=== PATIENT | female | born 1970 | race Asian ===

== ENCOUNTER 2017-03-08 02:27 | Emergency (ER) | payer SELFPAY ==
[2017-03-08] MEDS ORDERED: Tetracaine 0.5% OPTH.SOL 4 ML* 1 DROP BTL ONE (03:16)
[2017-03-08] MEDS ORDERED: Fluorescein Sodium TOPICAL* 1 MG TEST OPHTHALMIC ONE (03:17)
[2017-03-08] MEDS ORDERED: Tobramycin 0.3% OPHTH.SOL* 5 ML BOT (regular eye drops) LEFT EYE ONE (03:36)
--- NOTE | 2017-03-08 03:47 | ED ---
Hima Napoles Nikita, scribed for Evens Richardson MD on 03/08/17 at 0333 . Throat Pain/Nasal Congestion - HPI Summary HPI Summary: This patient is a 46 year old F presenting to ED with a chief complaint of L eye pain since 2300. Pt reports she was on her computer during onset of pain in the L eye. The CC is described as moving towards nose and in the top of the eye. The patient rates the pain 8/10 in severity. Symptoms aggravated by nothing. Symptoms alleviated by nothing (washing out eye and eye drops did not help). Patient reports decreased sleep. Patient denies blurred vision. Pt does not have contacts or glasses (has 20/20 vision). - History of Current Complaint Chief Complaint: EDEyeProblem Time Seen by Provider: 03/08/17 03:11 Hx Obtained From: Patient Onset/Duration: Sudden Onset, Lasting Hours, Still Present Severity: Moderate - Allergies/Home Medications Allergies/Adverse Reactions: Allergies Allergy/AdvReac Type Severity Reaction Status Date / Time No Known Allergies Allergy Verified 09/11/16 20:06 PMH/Surg Hx/FS Hx/Imm Hx GI History: Reports: Other GI Disorders - Polyp at cervical os, enlarged uterus History: Reports: Other Problems/Disorders - Polyp at cervical os, enlarged uterus Sensory History: Denies: Hx Contacts or Glasses Opthamlomology History: Denies: Hx Contacts or Glasses - Surgical History Surgery Procedure, Year, and Place: , fallopian tube surgery Infectious Disease History: No Infectious Disease History: Denies: Traveled Outside the [place] in Last 30 Days - Family History Known Family History: Negative: Diabetes, Blood Disorder - Social History Alcohol Use: None Hx Substance Use: No Substance Use Type: Reports: None Hx Tobacco Use: No Smoking Status (MU): Never Smoked Tobacco Review of Systems Positive: Other - L eye pain. Negative: Blurred Vision Neurological: Other - decreased sleep All Other Systems Reviewed And Are Negative: Yes Physical Exam Triage Information Reviewed: Yes Vital Signs On Initial Exam: Initial Vitals Temp Pulse Resp BP Pulse Ox 97.8 F 63 16 134/77 100 03/08/17 02:33 03/08/17 02:33 03/08/17 02:33 03/08/17 02:33 03/08/17 02:33 Vital Signs Reviewed: Yes Appearance: Positive: Well-Appearing, No Pain Distress Skin: Positive: Warm, Skin Color Reflects Adequate Perfusion, Dry Head/Face: Positive: Normal Head/Face Inspection Eyes: Positive: EOMI, HOMA, Other: - Medial sclera injection of L eye, L eye has clear tearing ENT: Positive: Normal ENT inspection Neck: Positive: Supple, Nontender Respiratory/Lung Sounds: Positive: Clear to Auscultation, Breath Sounds Present Cardiovascular: Positive: RRR Abdomen Description: Positive: Nontender, Soft Bowel Sounds: Positive: Present Musculoskeletal: Positive: Normal, Strength/ROM Intact Neurological: Positive: Normal, Sensory/Motor Intact, Alert, Oriented to Person Place, Time, CN Intact II-III Psychiatric: Positive: Affect/Mood Appropriate - Bernard Coma Scale Coma Scale Total: 15 Procedures - Procedure Summary Procedure Summary: Used tetracaine (0.5%) and fluorescein stain on L eye; found 1.5 mm uptake on medial aspect of iris, no foreign body seen, corneal abrasion. Diagnostics - Vital Signs Vital Signs Temp Pulse Resp BP Pulse Ox 03/08/17 02:33 97.8 F 63 16 134/77 100 - Laboratory Lab Statement: Any lab studies that have been ordered have been reviewed, and results considered in the medical decision making process. EENT Course/Dx - Course Assessment/Plan: This patient is a 46 year old F presenting to ED with a chief complaint of L eye pain since 2300. Pt reports she was on her computer during onset of pain in the L eye. The CC is described as moving towards nose and in the top of the eye. The patient rates the pain 8/10 in severity. Symptoms aggravated by nothing. Symptoms alleviated by nothing (washing out eye and eye drops did not help). Patient reports decreased sleep. Patient denies blurred vision. Medications reviewed. Pt will be discharged. Pt is agreeable with this plan. NO FR SEEN. POSITIVE CORNEAL ABRASION. GIVEN TOBREX. F/U OPTHAMOLOGY IF NOT COMPLETELY IMPROVED. - Diagnoses Provider Diagnoses: Left corneal abrasion Discharge - Discharge Plan Condition: Stable Disposition: HOME Patient Education Materials: Corneal Abrasion (ED) Referrals: [facility] [Provider Group] DARWIN WASHBURN MD [Provider Group] Additional Instructions: FOLLOW UP WITH OPHTHALMOLOGY IN 1-2 DAYS IF NOT COMPLETELY IMPROVED. RETURN TO THE EMERGENCY DEPARTMENT FOR ANY WORSENING OF YOUR CONDITION OR QUESTIONS OR CONCERNS. The documentation as recorded by the Hima cintron Nikita accurately reflects the service I personally performed and the decisions made by me, Evens Richardson MD.
[2017-03-08 04:24] VITALS: BP 128/70
== END 2017-03-08 04:05 | disposition home or self-care (01) ==
LOC: ED 02:27
DX: S05.02XA Injury of conjunctiva and corneal abrasion without foreign body, left eye, initial encounter (principal); H57.12 Ocular pain, left eye; X58.XXXA Exposure to other specified factors, initial encounter; Y93.9 Activity, unspecified; Y92.9 Unspecified place or not applicable
CPT/HCPCS: 99282; A9270-GY